=== PATIENT | female | born 1970 | race Caucasian/White ===

== ENCOUNTER → 2021-11-02 09:07 | Outpatient (CLI) | payer OTHER, SELFPAY ==
--- NOTE | 2021-11-02 09:09 | DI.US.S_ITS ---
PROCEDURE: US PELVIC COMPLETE INDICATIONS: PELVIC MASS TECHNIQUE: Real-time scanning was performed of the pelvic organs, with image documentation. Additional endovaginal scanning was necessary due to incomplete visualization of the adnexal and endometrial structures by transabdominal scanning. COMPARISON: None. FINDINGS: Uterus: Uterus is anteverted and enlarged in size at 15.6 x 9.9 x 7 cm. The endometrial stripe is not well seen. Incidental note is made of nabothian cysts. Hypoechoic uterine lesions are seen, which are attributed to fibroids. They measure as follows: Lower uterine segment/cervix, intramural 7.4 x 7.6 x 5.4 cm Fundal uterus, intramural, 7.1 x 9 x 7.5 cm Ovaries: Evaluation of the ovaries is limited, as they are only seen transabdominally. The right ovary measures 2.2 x 1.8 x 1.6 cm. The left ovary measures 3.8 x 2 3 x 2 cm. The ovaries have a normal sonographic appearance. No adnexal masses are seen. Is Other: No pathologic free abdominal or pelvic fluid. IMPRESSION: Enlarged, fibroid uterus. The There is a prominent apparent fibroid seen within the region of the lower uterine segment/cervix. Differential diagnosis includes a neoplastic cervical mass at this site. We strive to produce accurate, complete, and clear reports of imaging services. To assist us in improving patient care, this report was composed using standard report templates and voice recognition software. Therefore, it may contain abnormal punctuation, insertions and/or omissions. Occasional wrong-word or sound-alike substitutions may occur. Though we review the report and make efforts to correct it, we do recommend that the report be read carefully in proper context to recognize any text inaccuracies. Dictated by: Primo Duron M.D. on 11/02/2021 at 11:52 Approved by: Primo Duron M.D. on 11/02/2021 at 11:55
== END ==
PROVIDERS: PCP Student in an Organized Health Care Education/Training Program; Referring Provider Specialist; Visit Provider Specialist
DX: R19.00 Intra-abdominal and pelvic swelling, mass and lump, unspecified site (principal); D25.1 Intramural leiomyoma of uterus
CPT/HCPCS: 76830; 76856

== ENCOUNTER → 2022-01-31 12:46 | Outpatient (CLI) | payer OTHER, SELFPAY | PROVIDERS: PCP Student in an Organized Health Care Education/Training Program; Visit Provider Specialist | DX: N39.0 Urinary tract infection, site not specified (principal) | CPT/HCPCS: 87086 ==

== ENCOUNTER → 2022-10-08 11:17 | Outpatient (CLI) | payer OTHER, SELFPAY ==
--- NOTE | 2022-10-08 11:18 | DI.MRI.S_ITS ---
PROCEDURE: MR PELVIS WO/W CON INDICATIONS: Pelvic mass TECHNIQUE: Coronal HASTE, sagittal breath-hold T2 FSE; axial T1 FSE with and without fat saturation through the pelvis. Optional long- and short-axis uterine nonbreath-hold T2 FSE through the uterus. Sagittal or axial dynamic VIBE during administration of contrast. Post-contrast axial or coronal VIBE/2-D FLASH with fat saturation from the iliac crests to the symphysis. Optional diffusion weighted imaging and ADC may be performed. COMPARISON: [facility], , PELVIC COMPLETE, 11/02/2021, 9:12. FINDINGS: Image quality: Good Lower abdomen: Fat containing ventral hernia partially visualized. No bowel obstruction. Bladder: Under distended, difficult to evaluate Reproductive organs: Dominant fibroids (FIGO 2-5) at the fundus and lower uterine segment. The fundal fibroid measures 8.1 x 8.2 cm and has some atypical imaging features, including mild T2 hyperintensity and suspected diffusion restriction. The lower uterine segment fibroid measures 7.7 x 7.2 cm and has more typical fibroid imaging features. Other smaller fibroids are present. There is a suspected endometrial synechia a in the mid aspect of the uterus (3/17) . The endometrium is displaced by the dominant fibroids. Dominant follicles are seen in the region of the left ovary. No pathologic enhancement in the adnexal structures. A suspected normal right ovary is also present, displaced to the right pelvic sidewall. Normal appearance of the cervical stroma. Rectum: Overall unremarkable Vessels and lymph nodes: There are prominent periuterine vessels. No aneurysm in the field of view. No pathologic adenopathy by size criteria. Pelvic wall: Unremarkable Bones: No acute or suspicious osseous abnormality. IMPRESSION: Dominant uterine fibroids in the fundus and lower uterine segment as described above. FIGO 2-5. The fundal fibroid has some atypical MRI imaging features, including mildly T2 hyperintense signal and diffusion restriction. This is still favored to represent a fibroid which is likely more hypercellular. A less likely consideration is leiomyosarcoma. If intervention is not pursued, follow-up imaging could be obtained. 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 Dictated by: Eusebio Cortes M.D. on 10/08/2022 at 12:41 Approved by: Eusebio Cortes M.D. on 10/08/2022 at 12:51
== END ==
PROVIDERS: PCP Student in an Organized Health Care Education/Training Program; Referring Provider Obstetrics & Gynecology; Visit Provider Obstetrics & Gynecology
DX: R19.00 Intra-abdominal and pelvic swelling, mass and lump, unspecified site (principal); D25.1 Intramural leiomyoma of uterus; D25.2 Subserosal leiomyoma of uterus
CPT/HCPCS: 72197; A9579

== ENCOUNTER → 2022-10-17 17:02 | Outpatient (CLI) | payer OTHER, SELFPAY ==
[2022-10-17 18:48] LABS: Cancer Antigen 125 26.7 U/mL (0-35); Carcinoembryonic Antigen 0.4 ng/mL (0.1-3.0)
== END ==
PROVIDERS: PCP Student in an Organized Health Care Education/Training Program; Referring Provider Obstetrics & Gynecology; Visit Provider Obstetrics & Gynecology
DX: R19.00 Intra-abdominal and pelvic swelling, mass and lump, unspecified site (principal)
CPT/HCPCS: 36415; 82378; 86304

== ENCOUNTER → 2023-08-12 08:15 | Outpatient (CLI) | payer OTHER, SELFPAY ==
--- NOTE | 2023-08-12 08:18 | DI.CT.S_ITS ---
PROCEDURE: CT ABDOMEN PELVIS W CON INDICATIONS: Ventral hernia TECHNIQUE: After the administration of oral and intravenous contrast, axial sections were acquired from the lung bases to the pubic symphysis. Coronal and sagittal reformats were performed. For radiation dose reduction, the following was used: automated exposure control, adjustment of mA and/or kV according to patient size. COMPARISON:None. FINDINGS: Image quality: Excellent. Lung bases: Lung bases are clear. Heart size is normal. Solid organs: Liver: The liver has no mass or intrahepatic biliary ductal dilatation. The portal vein and hepatic veins are patent. Subcentimeter hepatic cysts in both lobes. Biliary: The gallbladder has no gallstones, pericholecystic fluid, gallbladder wall thickening, or surrounding inflammatory change. Pancreas: The pancreas has no mass or ductal dilatation. There is no surrounding inflammation. Spleen: Normal size. There are no masses. Adrenals: No hypertrophy or nodules. Kidneys: No obstructive calculus or hydronephrosis. No solid mass. No cystic mass. Peritoneum and bowel: The distal esophagus and stomach are normal. The small bowel has a normal caliber and appearance. The terminal ileum is normal. The large bowel has a normal caliber and appearance. The appendix is normal. No free fluid or air. Nodes and vessels: No retroperitoneal or mesenteric adenopathy by size criteria. Aorta and inferior vena cava are normal in size. Miscellaneous: No abdominal wall mass or hernia. There is a periumbilical fascial defect measuring 3.2 cm x 3.4 cm in diameter containing herniated fat. PELVIS: Genitourinary: The bladder has no wall thickening or mass. Bones: No suspicious bony lesions. No vertebral body compression fractures. IMPRESSION: 1. 3.2 x 3.4 cm periumbilical ventral hernia with a fascial defect containing herniated fat. 2. No acute or other significant abnormality. Dictated by: Bharat Rubi M.D. on 08/12/2023 at 11:15 Approved by: Bharat Rubi M.D. on 08/12/2023 at 11:25
== END ==
PROVIDERS: PCP Student in an Organized Health Care Education/Training Program; Referring Provider Surgery; Visit Provider Surgery
DX: K42.9 Umbilical hernia without obstruction or gangrene (principal)
CPT/HCPCS: 74177; Q9967